=== PATIENT | female | born 1955 | race African-American/Black ===

== ENCOUNTER → 2018-08-03 | Outpatient (CLI) | payer MEDICARE ==
[~2018-08-03] MED LIST: ALDACTONE25 MG PO; AMBIEN 5 MG TABL5 M1 PO; ATIVAN1 MG PO; CANASA1000 MG RECTAL; COLACE100 MG PO; COUMADIN 5 MG TA5 M1 PO; COUMADIN7.5 MG PO; COZAAR 25 MG TA25 M1 PO; DEMADEX20 MG PO; DIGOXIN125 MCG PO; ENOXAPARIN80 MG/0.1 SUBQ; HYDROXYZINE HCL10 M1 PO; LIALDA1.2 GM PO; MIRALAX17 GM PO; NORVASC5 MG PO; OXYCODONE HCL 55 MG PO; PACERONE 200 M200 M1 PO; PACERONE100 MG PO; PERCOCET 10-321 EACH PO; PROTONIX40 M1 PO; REMERON15 MG PO; SINGULAIR 10 MG10 M1 PO; SLOW FE 160MG160 MG PO; SONATA10 MG PO; TRAMADOL 50 MG50 MG PO; TRAZODONE 150150 M1 PO; VITAMIN D5000 UNIT PO; XANAX 0.25 MG0.25 MG PO; ZALEPLON 10 MG10 M1 PO; ZANTAC 150MG T150 MG PO; ZAROXOLYN 5MG TA5 MG PO; ZOLOFT50 MG PO
[2018-08-03 14:19] LABS: ABSOLUTE BASOPHILS 0.1 thou/uL (0.0-0.2); ABSOLUTE EOSINOPHILS 0.2 thou/uL (0.0-0.7); ABSOLUTE LYMPHOCYTES 1.7 thou/uL (0.8-5.3); ABSOLUTE MONOCYTES 0.5 thou/uL (0.0-1.2); ABSOLUTE NEUTROPHILS 4.1 thou/uL (1.6-8.1); BASOPHILS 1.2 %; EOSINOPHILS 2.6 %; HEMATOCRIT 38.5 % (37.0-47.0); HEMOGLOBIN 12.4 gm/dL (12.0-15.0); LYMPHOCYTES 25.6 %; MCH 27.8 pg (26.0-34.0); MCHC 32.2 g/dL (28.0-37.0); MCV 86.2 fL (80.0-100.0); MPV 7.6 fl. (7.2-11.1); NUCLEATED RBCS 0 /100WBC; PLATELET COUNT* 344 thou/uL (150-400); POLYS 62.6 %; RBC 4.47 mil/uL (4.20-5.00); WBC 6.6 thou/uL (4.0-11.0)
[2018-08-03 14:31] LABS: ALBUMIN 3.8 g/dL (3.4-5.0); CALCIUM 9.8 mg/dL (8.5-10.1); CREATININE 0.8 mg/dL (0.6-1.3); POTASSIUM 4.5 mmol/L (3.5-5.1); TOTAL BILIRUBIN 0.4 mg/dL (<0.1-1.0); TOTAL PROTEIN 7.5 g/dL (6.4-8.2)
[2018-08-03 14:42] LABS: % SATURATION 19 % (20-39); IRON 88 ug/dL (50-175)
[2018-08-03 15:17] LABS: ESR (SEDRATE) 20 mm/hr (0-30)
== END ==
LOC: M.LAB 13:33
PROVIDERS: Physician Assistant
DX: K51.90 Ulcerative colitis, unspecified, without complications (principal)

== ENCOUNTER → 2018-08-10 | Day surgery (SDC) | payer MEDICARE ==
--- NOTE | ~2018-08-10 | PROC ---
[address] [address] PROCEDURE REPORT Name: KAREN PRESCOTT Room: [facility].#: [id number] Admission: 08/10/18 Attend Phys: Judith Estevez MD Discharge: Date of : 57 Report #: [id number] THIS REPORT FOR: //name// For GI report, please see the Provation report in Perceptive 7 content. By: 0640Medical Records Staff JESSIE /JACKI
[2018-08-10 08:40] LABS: HEMATOCRIT 41.8 % (37.0-47.0); HEMOGLOBIN 13.6 gm/dL (12.0-15.0); MCH 28.3 pg (26.0-34.0); MCHC 32.6 g/dL (28.0-37.0); MCV 86.7 fL (80.0-100.0); MPV 7.6 fl. (7.2-11.1); RBC 4.83 mil/uL (4.20-5.00); RDW-CV 16.8 % (10.5-14.5); WBC 6.5 thou/uL (4.0-11.0)
[2018-08-10 09:24] LABS: CALCIUM 9.6 mg/dL (8.5-10.1); POTASSIUM 4.1 mmol/L (3.5-5.1)
[2018-08-10 09:37] LABS: ALBUMIN 4.1 g/dL (3.4-5.0); TOTAL BILIRUBIN 0.4 mg/dL (<0.1-1.0); TOTAL PROTEIN 8.1 g/dL (6.4-8.2)
--- NOTE | 2018-08-10 11:24 | EKG ---
[place] [address] ELECTROCARDIOGRAM REPORT Name: KAREN PRESCOTT Room: [facility]#: [id number] Admission: 08/10/18 Attend Phys: Judith Estevez MD Discharge: Date of : 57 Report #: [id number] THIS REPORT FOR: //name// [facility] Test Date: 2018-08-10 Test Time: 08:36:57 Pat Name: KAREN PRESCOTT Department: Room: Gender: F Community Mental Health Worker: : 1955 Requested By: Judith Estevez Order Number: [id number] Reading MD: Rohan Miguel Measurements Intervals [place] Rate: 71 P: TN: 168 QRS: 20 QRSD: 89 T: 24 QT: 430 QTc: 468 Interpretive Statements Atrial-paced complexes Compared to ECG 09/14/2015 07:42:03 Sinus rhythm no longer present T-wave abnormality no longer present Electronically Signed On 08-10-2018 11:24:02 CDT by Rohan Miguel [email or web address] <ELECTRONICALLY SIGNED> By: Rohan Miguel MD, [facility] 08/10/18 1124 [id number] Rohan Miguel MD, [facility] /EPI
--- NOTE | 2018-08-11 18:05 | PATH ---
[facility] [address] [place] [address] PATHOLOGY RPT PROCEDURE Name: KAREN PRESCOTT YVAN Room: [facility].#: [id number] Admission: 08/10/18 Date of : 57 Discharge: Report #: [id number] Path Case #: [id number] [facility] Accession Number: [id number] . 01 Material submitted: . rectum - SOLITARY RECTAL ULCER BIOPSY . 01 Clinical history: . Ulcerative colitis, Hematochezia, heartburn . 02 Diagnosis: Solitary rectal ulcer biopsy: - Mild active colitis with regenerative features, negative for granulomas, viral inclusions and dysplasia. See comment. LBQ/08/11/2018 . 02 Comment: Most of the biopsy represents superficial benign colonic mucosa as well as a few larger fragments of benign colonic mucosa with mild active inflammation and a minute fragment showing focal active inflammation in association with granulation tissue, surface atrophy and possible smooth muscle between crypts. The histologic findings are compatible with ulcerative colitis with mild activity. (MEG/db; 08/11/2018) . 02 Electronically signed: . David Granados MD, Pathologist NPI- [id number] . 01 Gross description: . The specimen is received in formalin, labeled "Karen Prescott, solitary rectal ulcer, biopsy", are several hcu-jay, soft tissue fragments measuring 0.4 x 0.4 x 0.1 cm in aggregate, entirely submitted in A1. ([facility]; 08/10/2018) SHS/SHS . 02 Pathologist provided ICD-10: K62.6 . 02 CPT . 125892 Specimen Comment: A courtesy copy of this report has been sent to Specimen Comment: [phone], , . Specimen Comment: Report sent to ,DR TORRSE / DR CHOWDHURY Performed at: [address], [place], [place] [id number] MD Norm Jordan MD Phone: [phone] [place] [address] PATHOLOGY RPT PROCEDURE Name: KAREN PRESCOTT YVAN Room: [facility].#: [id number] Admission: 08/10/18 Date of : 57 Discharge: Report #: [id number] Path Case #: [id number] Performed at: 02 [facility] [address], [place], [place] [id number] MD David Granados MD Phone: [phone]
== END | disposition home or self-care (01) ==
LOC: M.SUR
PROVIDERS: Internal Medicine Gastroenterology
DX: K62.89 Other specified diseases of anus and rectum (principal); K64.4 Residual hemorrhoidal skin tags; K21.9 Gastro-esophageal reflux disease without esophagitis; K44.9 Diaphragmatic hernia without obstruction or gangrene; I50.9 Heart failure, unspecified; I42.9 Cardiomyopathy, unspecified; G47.33 Obstructive sleep apnea (adult) (pediatric); Z98.0 Intestinal bypass and anastomosis status; Z86.73 Personal history of transient ischemic attack (TIA), and cerebral infarction without residual deficits; Z79.899 Other long term (current) drug therapy; Z90.49 Acquired absence of other specified parts of digestive tract; Z98.890 Other specified postprocedural states; Z90.710 Acquired absence of both cervix and uterus; Z98.84 Bariatric surgery status; Z88.8 Allergy status to other drugs, medicaments and biological substances